=== PATIENT | male | born 1995 | race Two or more races ===

== ENCOUNTER 2017-05-17 13:57 | Emergency (ER) | payer SELFPAY ==
[~2017-05-17] VITALS: Ht 177.8 cm; Wt 79.8 kg
[2017-05-17 14:03] VITALS: BP 149/76
== END 2017-05-17 14:48 | disposition home or self-care (01) ==
LOC: ER 14:01
DX: F41.1 Generalized anxiety disorder (principal); Z88.0 Allergy status to penicillin
CPT/HCPCS: 93005